=== PATIENT | male | born 1970 | race Caucasian/White ===

== ENCOUNTER 2025-05-04 18:39 | Emergency (ER) | payer MEDICAID, SELFPAY ==
[2025-05-04 18:44] VITALS: BP 170/107; PULSE 99; RESP 18; O2SAT 98
--- NOTE | 2025-05-04 19:15 | W.ED.GENADLT ---
HPI - General Adult General: Chief complaint: General Medical Stated complaint: Gout Time Seen by Provider: 05/04/25 18:49 Source: patient Mode of arrival: ambulatory Limitations: no limitations History of Present Illness: Patient is a 54-year-old male who presents emergency department stating he is having an acute gout flareup in his right knee. Also states he has had pain in his right great toe. Normally takes allopurinol. In the past states he has received steroids and this has helped. No other symptoms, no fever, no chest pain, no shortness of breath. MD complaint: Right knee pain/acute gout flare Onset (ago): day(s) Location: right and lower extremity Associated symptoms: Deny chest pain, dyspnea, headache(s), nausea, rash or vomiting Related Data Allergies Allergy/AdvReac Type Severity Reaction Status Date / Time No Known Allergies Allergy Verified 05/04/25 18:48 Review of Systems General: Reports: 10 or more systems reviewed and unremarkable except in HPI and below Const: Denies: fever(s) or chills Card: Denies: chest pain Resp: Denies: dyspnea or productive cough GI: Denies: abdominal pain, nausea, vomiting or diarrhea : Denies: flank pain Musc: Reports: extremity pain (Right great toe), joint pain (Right knee) and joint swelling (Right knee); Denies: neck pain, back pain, extremity swelling, joint redness, joint warmth, limited range of motion or muscle weakness Skin/Breast: Denies: rash Neuro: Denies: headache(s), numbness in extremities or weakness in extremities Physical Exam Const: COMMON NORMALS: no acute distress, patient oriented x3, no limitations, healthy appearing, alert and well nourished Extremity: COMMON NORMALS: normal to inspection, full ROM, capillary refill normal, no joint enlargement and no clubbing, cyanosis or edema NARRATIVE EXTREMITY EXAM: Diffuse tenderness to right knee, there is no obvious swelling or redness or warmth to the joint. Pain with range of motion, though range of motion is intact. Tender to palpation to right great toe, no redness or swelling. Neuro: COMMON NORMALS: patient oriented x3, moves all extremities, no focal motor deficits and no sensory deficits noted SENSORIUM/ORIENTATION: Yes alert Skin: COMMON NORMALS: no rashes or lesions noted GENERAL SKIN EXAM: no rashes or lesions noted Course Vital Signs: Vital signs: Vital Signs Pulse Rate 99 05/04/25 18:44 Respiratory Rate 18 05/04/25 18:44 Blood Pressure 170/107 05/04/25 18:44 Pulse Oximetry 98 05/04/25 18:44 Oxygen Delivery Me thod Room Air 05/04/25 18:44 MDM - General Adult Medical Decision Making Patient here stating he is having acute gout flareup, pain similar to previous episodes. No trauma reported. No fever or systemic symptoms of illness. He is given IM Decadron and Toradol here, instructed to take NSAIDs at home and continue his allopurinol once flare subsides. No radiology studies performed this visit Discharge Plan Discharge Patient Disposition: Home Clinical Impression: Acute gout of right knee Qualifiers: Gout etiology: unspecified cause Qualified Code(s): M10.9 - Gout, unspecified Condition: Stable Discharge Orders: Discharge ED (Routine); Ordered 05/04/25 Ordered By: Denis Dalton Patient Instructions: Patient Portal & Gabriella Instructions Activity Restrictions/Additional Instructions: Gout Flare Discharge Instructions Discharge Instructions: Acute Gout Flare (Right Knee) Diagnosis and ED Management: 54-year-old male treated for acute gout flare of the right knee. Received intramuscular ketorolac and dexamethasone in the emergency department. --- 1. Home Pharmacologic Management - NSAIDs: Continue NSAIDs at full anti-inflammatory doses for 7?10 days, unless contraindicated (e.g., peptic ulcer disease, chronic kidney disease, severe cardiovascular disease, anticoagulation, or salicylate hypersensitivity). - Example: Diclofenac 50 mg orally twice daily, naproxen 500 mg orally twice daily, or indomethacin 50 mg orally three times daily. - Monitor for gastrointestinal, renal, and cardiovascular adverse effects. - Alternative/Adjunctive Options: - Colchicine: May be considered if NSAIDs are contraindicated or not tolerated. Low-dose regimen preferred due to similar efficacy and fewer adverse effects (1.2 mg orally, then 0.6 mg one hour later, then 0.6 mg once or twice daily for 7?10 days). - Glucocorticoids: Oral prednisone (e.g., 0.5 mg/kg/day, tapered over 7?10 days) may be considered if NSAIDs and colchicine are contraindicated. - Topical Ice: Application of ice to the affected joint is conditionally recommended as an adjuvant for pain and inflammation. --- 2. Activity and Joint Care - Rest the affected joint as much as possible until pain and swelling subside. - Elevate the limb to reduce swelling. - Avoid trauma or excessive use of the joint during recovery. --- 3. Monitoring and Warning Signs - Seek prompt medical attention for: - Signs of infection (fever, redness extending beyond the joint, severe pain unresponsive to therapy). - Adverse drug reactions (e.g., gastrointestinal bleeding, severe abdominal pain, rash, shortness of breath). - Persistent or worsening symptoms after 7?10 days of therapy. --- 4. Follow-Up and Long-Term Management - Schedule follow-up with primary care or rheumatology for: - Assessment of recurrent flares, consideration of urate-lowering therapy if indicated (e.g., frequent flares, tophi, radiographic damage). - Education on lifestyle modifications (weight management, limiting alcohol, reducing purine-rich foods), though evidence for dietary interventions is modest and not gout-specific. - Consideration of urate-lowering therapy (e.g., allopurinol) only if recurrent flares or complications develop; do not initiate during acute flare unless already on therapy. --- 5. Medication Precautions - NSAIDs: Avoid if history of peptic ulcer, CKD, heart failure, or anticoagulation. - Colchicine: Avoid in severe renal or hepatic impairment, or with strong CY/P-gp inhibitors. - Glucocorticoids: Use caution in diabetes, active infection, or psychiatric history. --- 6. Patient Education - Acute gout flares are self-limited but require prompt anti-inflammatory therapy for optimal pain control and function gnosticism. - Keep a supply of first-line medications ( [id number]-pocket approach) for future flares, as recommended by subspecialty guidelines. - Discuss risks, benefits, and alternatives of therapy at follow-up. Print Language: Belarusian Coding Level of Care Code ED [employer] for Brigida Oliva
== END 2025-05-04 19:22 | disposition home or self-care (01) ==
PROVIDERS: Emergency Provider Physician Assistant
DX: M10.061 Idiopathic gout, right knee (principal)
CPT/HCPCS: 96372; 99284; J1100; J1885